=== PATIENT | male | born 1935 | race Caucasian/White ===

== ENCOUNTER 2016-08-18 16:13 | Emergency (ER) | payer OTHER ==
[~2016-08-18] VITALS: Ht 167.6 cm; Wt 64.6 kg
[2016-08-18 18:30] LABS: BASOPHIL % 0.4 % (0-2); PLATELET COUNT 286 x10^3mcL (130-400)
[2016-08-18] MEDS ORDERED: ENALAPRIL MALE2.5 MG (18:30)
[2016-08-18] MEDS ORDERED: ADV100/50 (18:30)
[2016-08-18] MEDS ORDERED: TOPROL XL25 MG (18:30)
[2016-08-18] MEDS ORDERED: AZOR 10-20 MG1 EACH (18:31)
[2016-08-18] MEDS ORDERED: FUROSEMIDE20 MG (18:31)
[2016-08-18] MEDS ORDERED: PROL (18:31)
[2016-08-18] MEDS ORDERED: TAMSULOSIN HYD0.4 M1 (18:31)
[2016-08-18] MEDS ORDERED: SPIRIVA18 MC1 (18:31)
[2016-08-18] MEDS ORDERED: DALIRESP500 MC1 (18:31)
[2016-08-18 18:41] LABS: ALKALINE PHOSPHATASE 474 U/L (46-116); ALT/SGPT 150 U/L (16-63); AST/SGOT 86 U/L (15-37); CARBON DIOXIDE 26.8 mmol/L (21-32); CHLORIDE SERUM 103 mmol/L (98-107); CREATININE SERUM 1.2 mg/dL (0.7-1.3); GLUCOSE SERUM 120 mg/dL (74-106); POTASSIUM SERUM 3.9 mmol/L (3.5-5.1); SODIUM SERUM 140 mmol/L (136-145); TOTAL PROTEIN, SERUM 7.4 g/dL (6.4-8.2)
[2016-08-18 18:42] LABS: ALBUMIN 3.1 g/dL (3.4-5.0); AMYLASE 455 U/L (25-115)
[2016-08-18 18:43] LABS: RED CELL DISTRIBUTION WIDTH 15.8 % (11.5-14.5)
[2016-08-18 19:27] LABS: LIPASE 5365 IU/L (73-393)
[2016-08-18 20:17] VITALS: BP 148/73
== END 2016-08-18 20:17 | disposition home or self-care (01) ==
LOC: ED 16:13
PROVIDERS: Emergency Medicine
DX: R17 Unspecified jaundice (principal); I10 Essential (primary) hypertension; K83.1 Obstruction of bile duct; Z79.899 Other long term (current) drug therapy; Z85.46 Personal history of malignant neoplasm of prostate

== ENCOUNTER 2016-09-06 12:58 | Emergency (ER) | payer OTHER ==
[~2016-09-06] VITALS: Ht 167.6 cm; Wt 61.7 kg
[~2016-09-06 12:58] MED LIST: ADV100/50; AZOR 10-20 MG1 EACH; DALIRESP500 MC1; ENALAPRIL MALE2.5 MG; FUROSEMIDE20 MG; PROL; SPIRIVA18 MC1; TAMSULOSIN HYD0.4 M1; TOPROL XL25 MG
[2016-09-06 13:57] LABS: PLATELET COUNT 302 x10^3mcL (130-400)
[2016-09-06 14:11] LABS: CALCIUM 8.9 mg/dL (8.5-10.1); CARBON DIOXIDE 20.5 mmol/L (21-32); CHLORIDE SERUM 105 mmol/L (98-107); CREATININE SERUM 1.4 mg/dL (0.7-1.3); GLUCOSE SERUM 111 mg/dL (74-106); POTASSIUM SERUM 3.1 mmol/L (3.5-5.1); SODIUM SERUM 139 mmol/L (136-145)
[2016-09-06 14:16] LABS: ALKALINE PHOSPHATASE 839 U/L (46-116); ALT/SGPT 224 U/L (16-63); AST/SGOT 226 U/L (15-37); TOTAL PROTEIN, SERUM 7.2 g/dL (6.4-8.2)
[2016-09-06 14:19] LABS: RED CELL DISTRIBUTION WIDTH 16.1 % (11.5-14.5)
[2016-09-06 14:20] LABS: ALBUMIN 2.8 g/dL (3.4-5.0)
[2016-09-06 14:21] LABS: AMYLASE 428 U/L (25-115)
[2016-09-06 14:23] LABS: BILIRUBIN TOTAL 13.2 mg/dL (0.20-1.00)
[2016-09-06 14:35] LABS: LIPASE 4270 IU/L (73-393)
[2016-09-06 14:40] LABS: BAND NEUTROPHIL 1 % (0-10); BASOPHIL 1 % (0-2); MONOCYTE 7 % (0-7); SEGMENTED NEUTROPHILS 78 % (37-75)
[2016-09-06 14:41] LABS: PLATELET MORPHOLOGY PLATELETS NORMAL; rbc morphology (normal/abnorm) ABNORMAL (NORMAL)
[2016-09-06 15:10] LABS: microscopic required? YES; urine erythrocyte TRACE (NEGATIVE)
[2016-09-06 16:35] VITALS: BP 140/71
== END 2016-09-06 16:35 | disposition home or self-care (01) ==
LOC: ED 12:58
PROVIDERS: Emergency Medicine
DX: R17 Unspecified jaundice (principal); D64.9 Anemia, unspecified; I10 Essential (primary) hypertension; N28.9 Disorder of kidney and ureter, unspecified; E78.5 Hyperlipidemia, unspecified; J44.9 Chronic obstructive pulmonary disease, unspecified; Z85.46 Personal history of malignant neoplasm of prostate; Z87.19 Personal history of other diseases of the digestive system

== ENCOUNTER 2016-09-20 13:11 | Inpatient (IN) | payer OTHER ==
[~2016-09-20] VITALS: Ht 167.6 cm; Wt 59.2 kg
[2016-09-20 15:00] LABS: CALCIUM 8.9 mg/dL (8.5-10.1); CARBON DIOXIDE 22.1 mmol/L (21-32); CHLORIDE SERUM 100 mmol/L (98-107); CREATININE SERUM 1.2 mg/dL (0.7-1.3); GLUCOSE SERUM 111 mg/dL (74-106); POTASSIUM SERUM 3.2 mmol/L (3.5-5.1); SODIUM SERUM 134 mmol/L (136-145)
[2016-09-20 15:05] LABS: ALT/SGPT 222 U/L (16-63); AST/SGOT 260 U/L (15-37); TOTAL PROTEIN, SERUM 7.5 g/dL (6.4-8.2)
[2016-09-20 15:08] LABS: ALBUMIN 2.3 g/dL (3.4-5.0)
[2016-09-20 15:12] LABS: FREE T4 1.55 ng/dL (0.76-1.46); FREE THYROXINE INDEX 3.5 ug/dL (1.4-4.5)
[2016-09-20 15:13] LABS: CHOLESTEROL 268 mg/dL (<200); CHOLESTEROL/HDL RATIO 26.8; HDL CHOLESTEROL 10 mg/dL (40-60); TRIGLYCERIDES 233 mg/dL (<150)
[2016-09-20 15:14] LABS: BILIRUBIN TOTAL 22.5 mg/dL (0.20-1.00)
[2016-09-20 15:16] LABS: PLATELET COUNT 341 x10^3mcL (130-400)
[2016-09-20 15:21] LABS: RED CELL DISTRIBUTION WIDTH 17.4 % (11.5-14.5)
[2016-09-20 15:58] LABS: UA SPECIFIC GRAVITY 1.015 (1.005-1.035)
[2016-09-20 15:59] LABS: microscopic required? YES
[2016-09-20 16:00] LABS: urine erythrocyte 1+ (NEGATIVE)
[2016-09-20 16:09] LABS: MONOCYTE 2 % (0-7); SEGMENTED NEUTROPHILS 76 % (37-75)
[2016-09-20 16:10] LABS: BAND NEUTROPHIL 0 % (0-10); BASOPHIL 0 % (0-2); rbc morphology (normal/abnorm) ABNORMAL (NORMAL)
[2016-09-20 16:28] LABS: ALKALINE PHOSPHATASE 1149 U/L (46-116); LIPASE 6917 IU/L (73-393)
[2016-09-20 17:11] LABS: T3 TOTAL 0.71 ng/mL
[2016-09-20] MEDS ORDERED: FLO4 PO (17:37)
[2016-09-20] MEDS ORDERED: VENTOLIN H0.09 MG/A1 IH (17:37)
[2016-09-20] MEDS ORDERED: ENALAPRIL MALEA20 MG PO (17:38)
[2016-09-20] MEDS ORDERED: METOPROLOL SUC100 M2 PO (17:38)
[2016-09-20] MEDS ORDERED: LASIX20 MG PO (17:38)
[2016-09-20] MEDS ORDERED: ADV250/50 INH (17:39)
[2016-09-20] MEDS ORDERED: DALIRESP500 MC1 PO (17:39)
[2016-09-20] MEDS ORDERED: NOR10 PO (17:39)
[2016-09-20] MEDS ORDERED: SPIRIVA18 MC1 INH (17:39)
[2016-09-20 18:44] VITALS: BP 163/61
[2016-09-20 19:24] LABS: MAGNESIUM 1.9 mg/dL (1.8-2.4); PHOSPHOROUS 3.5 mg/dL (2.5-4.9)
[2016-09-20 21:35] VITALS: BP 116/56
[2016-09-20 22:08] VITALS: BP 116/56
[2016-09-21 05:09] VITALS: BP 131/55
[2016-09-21 05:52] LABS: PLATELET COUNT 293 x10^3mcL (130-400)
[2016-09-21 06:10] LABS: CALCIUM 8.6 mg/dL (8.5-10.1); CARBON DIOXIDE 22.3 mmol/L (21-32); CHLORIDE SERUM 107 mmol/L (98-107); GLUCOSE SERUM 89 mg/dL (74-106); MAGNESIUM 1.8 mg/dL (1.8-2.4); PHOSPHOROUS 2.7 mg/dL (2.5-4.9); POTASSIUM SERUM 3.6 mmol/L (3.5-5.1); SODIUM SERUM 137 mmol/L (136-145)
[2016-09-21 06:47] LABS: RED CELL DISTRIBUTION WIDTH 17.4 % (11.5-14.5)
[2016-09-21 08:26] LABS: BAND NEUTROPHIL 0 % (0-10); MONOCYTE 6 % (0-7); SEGMENTED NEUTROPHILS 84 % (37-75)
[2016-09-21 08:27] LABS: BASOPHIL 0 % (0-2)
[2016-09-21 08:30] LABS: rbc morphology (normal/abnorm) ABNORMAL (NORMAL); target cell (codocyte) 1+
[2016-09-21 10:00] VITALS: BP 135/57
[2016-09-21 12:12] VITALS: BP 135/57
== END 2016-09-21 13:08 | disposition home or self-care (01) | DRG 444 ==
LOC: ED 13:11 → DU 16:54 → MU 16:54 → DU 18:21 → MU 09-21 11:29
PROVIDERS: Internal Medicine; Specialist; ADMIT Family Medicine
PROC: 0F798DZ Dilation of Common Bile Duct with Intraluminal Device, Via Natural or Artificial Opening Endoscopic (ICD-10-PCS; principal; 2016-09-21 08:00)
DX: K83.1 Obstruction of bile duct (principal); N17.0 Acute kidney failure with tubular necrosis; E43 Unspecified severe protein-calorie malnutrition; C25.9 Malignant neoplasm of pancreas, unspecified; E87.1 Hypo-osmolality and hyponatremia; C79.82 Secondary malignant neoplasm of genital organs; K76.0 Fatty (change of) liver, not elsewhere classified; E78.5 Hyperlipidemia, unspecified; J44.9 Chronic obstructive pulmonary disease, unspecified; I10 Essential (primary) hypertension; Z87.891 Personal history of nicotine dependence; Z68.21 Body mass index [BMI] 21.0-21.9, adult
CPT/HCPCS: 43262; 83880; 84439; C1769; C2625; J1610; J1956; J2250; J2704; J3010; J3490; J7030; J7120; Q0092; Q9967

== ENCOUNTER 2016-10-30 14:36 | Emergency (ER) | payer OTHER ==
[~2016-10-30 14:36] MED LIST changes: +ADV250/50 INH; +DALIRESP500 MC1 PO; +ENALAPRIL MALEA20 MG PO; +FLO4 PO; +LASIX20 MG PO; +METOPROLOL SUC100 M2 PO; +NOR10 PO; +SPIRIVA18 MC1 INH; +VENTOLIN H0.09 MG/A1 IH
[2016-10-30 16:26] LABS: microscopic required? YES; urine erythrocyte 3+ (NEGATIVE)
[2016-10-30 16:59] LABS: CARBON DIOXIDE 22.6 mmol/L (21-32); CHLORIDE SERUM 104 mmol/L (98-107); CREATININE SERUM 1.2 mg/dL (0.7-1.3); GLUCOSE SERUM 102 mg/dL (74-106); SODIUM SERUM 140 mmol/L (136-145)
[2016-10-30 17:00] LABS: BASOPHIL % 0.3 % (0-2); PLATELET COUNT 246 x10^3mcL (130-400)
[2016-10-30 17:01] LABS: RED CELL DISTRIBUTION WIDTH 14.8 % (11.5-14.5)
[2016-10-30 17:05] LABS: ALKALINE PHOSPHATASE 217 U/L (46-116); ALT/SGPT 72 U/L (16-63); AST/SGOT 46 U/L (15-37); CHOLESTEROL 145 mg/dL (<200); HDL CHOLESTEROL 60 mg/dL (40-60); TOTAL PROTEIN, SERUM 7.8 g/dL (6.4-8.2)
[2016-10-30 17:06] LABS: ALBUMIN 3.3 g/dL (3.4-5.0)
[2016-10-30 18:57] VITALS: BP 146/62
== END 2016-10-30 18:57 | disposition home or self-care (01) ==
LOC: ED 14:36
PROVIDERS: Emergency Medicine
DX: R50.9 Fever, unspecified (principal); R05 Cough; I10 Essential (primary) hypertension; J45.909 Unspecified asthma, uncomplicated; Z85.09 Personal history of malignant neoplasm of other digestive organs; Z88.8 Allergy status to other drugs, medicaments and biological substances
CPT/HCPCS: 36415; 83880